=== PATIENT | male | born 1960 | race Caucasian/White ===

== ENCOUNTER 2017-08-03 13:09 | Inpatient (IN) | payer BC ==
[~2017-08-03] VITALS: Ht 172.7 cm; Wt 162.8 kg
[~2017-08-03 13:09] MED LIST: ATEN50TA PO; GEMF600T60 PO; LISI1TAB PO
[2017-08-03] MEDS ORDERED: ALBUTEROL 0.5% (NEB) 2.5 MG/0.5 ML AMP INH STA (14:29)
[2017-08-03] MEDS ORDERED: METHYLPREDNISOLONE 125 MG INJ IV STA (14:29)
[2017-08-03] MEDS ORDERED: IPRATROPIUM (NEB) 0.5 MG/2.5 ML AMP INH STA (14:29)
[2017-08-03 14:45] LABS: BASOPHILS % 0.4 % (0.0-2.0); EOSINOPHILS # 0.2 10^3/ul (0.0-0.5); EOSINOPHILS % 1.9 % (0.0-7.0); HEMATOCRIT 46.6 % (42.0-52.0); HEMOGLOBIN 15.2 g/dl (14.0-18.0); LYMPHOCYTES # 1.2 10^3/ul (0.8-2.9); LYMPHOCYTES % 11.7 % (15.0-51.0); MEAN CORPUSCULAR HGB CONC 32.6 g/dl (32.0-37.0); MEAN CORPUSCULAR VOLUME 88.8 fl (82.0-101.0); MEAN PLATELET VOLUME 10.6 fl (7.4-10.4); MONOCYTE # 0.9 10^3/ul (0.3-0.9); MONOCYTES % 8.5 % (0.0-11.0); NEUTROPHILS % 77.2 % (39.0-77.0); PLATELET COUNT 250 10^3/UL (140-415); RED BLOOD COUNT 5.25 10^6/ul (4.70-6.10); RED CELL DISTRIBUTION WIDTH 13.8 % (11.5-14.5); WHITE BLOOD COUNT 10.1 10^3/ul (4.8-10.8)
[2017-08-03 15:06] LABS: INR 0.91; PROTIME 12.3 Sec (12.2-14.2)
[2017-08-03 15:07] LABS: PARTIAL THROMBOPLASTIN TIME 24.1 Sec (25.0-35.0)
[2017-08-03 15:21] LABS: ANION GAP 13 (8-16); BLOOD UREA NITROGEN 34 mg/dl (7-20); CALCIUM 9.3 mg/dl (8.4-10.2); CARBON DIOXIDE 30 mmol/L (21-31); CHLORIDE 102 mmol/L (97-110); CREATININE 0.92 mg/dl (0.61-1.24); GLUCOSE 98 mg/dl (70-220); POTASSIUM 4.7 mmol/L (3.5-5.1); SODIUM 140 mmol/L (135-144)
--- NOTE | 2017-08-03 15:23 | RADRPT ---
PROCEDURE: Ultrasound of the left lower extremity venous system. CLINICAL INDICATION: Left leg pain and swelling, deep venous thrombosis TECHNIQUE: Brown scale with and without compression, color doppler, spectral doppler of the venous system of the left lower extremity was performed. Venous augmentation maneuvers were utilized. COMPARISON: No prior studies are available for comparison. FINDINGS: Common femoral vein: Patent. Femoral vein: Patent. Popliteal vein: Patent. Calf veins: Patent. A popliteal cyst measuring 3.0 x 1.5 x 1.8 cm. IMPRESSION: No evidence of a deep vein thrombosis within the left lower extremity. Small popliteal cyst. RPTAT: AADD .Benson Paredes MD, MD Date Time Electronically viewed and signed by .Benson Paredes MD, on 08/03/2017 15:22 .B/
[2017-08-03 15:38] LABS: B-TYPE NATRIURETIC PEPTIDE 58 PG/ML (0-125)
[2017-08-03 15:40] LABS: TROPONIN-I < 0.012 ng/ml (0.00-0.12)
[2017-08-03] MEDS ORDERED: IOHEXOL 100 ML ONE (16:07)
[2017-08-03] MEDS ORDERED: SOD CHLORIDE 0.9% 100 ML ONE (16:07)
--- NOTE | 2017-08-03 16:27 | RADRPT ---
PROCEDURE: X-ray Chest. CLINICAL INDICATION: Chest pain. TECHNIQUE: Single view chest x-ray. COMPARISON: Exam dated 05/17/2016. FINDINGS: The cardiomediastinal silhouette is within normal limits. The lungs are clear without f ocal consolidation, effusion, or pneumothorax. There are no acute osseous abnormalities. IMPRESSION: 1. No acute cardiopulmonary abnormality. RPTAT: HLBP .Jeyson Light MD, MD Date Time Electronically viewed and signed by .Jeyson Light MD, on 08/03/2017 16:27 .P/
--- NOTE | 2017-08-03 16:33 | RADRPT ---
PROCEDURE: CTA chest pulmonary angiography. CLINICAL INDICATION: Chest pain. TECHNIQUE: CT angiography of the chest was performed after the uneventful intravenous administratio n of 100 cc of Omnipaque 350. Coronal and sagittal reformations were performed. 3-D/multiplanar re formations were performed by the technologist and an independent workstation. The total exam CTDI = 79.77, 24.32 mGy and the DLP equals 912.84 mGy-cm. Evaluation is significantly limited due to contra st bolus timing. One or more of the following dose reduction techniques were used: - Automated exposure control. - Adjustment of the mA and/or kV according to patient size. - Use of iterative reconstruction technique. COMPARISON: Chest x-ray dated 08/03/2017. FINDINGS: Pulmonary angiogram: There is no large centrally obstructing embolus. A more distal embolus is not excluded. The main pulmonary artery is enlarged measuring 39 mm in diameter. Lungs, pleura, airways, and thoracic inlet: There is minor consolidation within the medial basal se gment of the right lower lobe. There is no effusion or pneumothorax. There are calcified nodules in the right lung, consistent with prior granulomatous disease. The tracheobronchial tree is patent an d normal in course and caliber. Cardiovascular system, mediastinum, and lymphatics: The heart is normal in size without pericardial thickening or effusion. There are atherosclerotic changes of the aorta, which is nonaneurysmal. The re is no axillary, hilar, or mediastinal adenopathy. Visualized upper abdomen: There are stones and the visualized gallbladder. Musculoskeletal system and soft tissues: There are no concerning osseous lesions. The soft tissues are unremarkable. IMPRESSION: 1. Significantly limited examination due to contrast bolus timing demonstrates no large centrally o bstructing embolus. A more distal embolus is not excluded. If clinical concern for pulmonary embolu s remains, nuclear medicine VQ scan versus repeat CT angiography can be performed. 2. Minor consolidation in the medial basal segment of the right lower lobe, which appears infectious /inflammatory in nature. 3. Pulmonary findings of prior granulomatous disease. 4. Enlarged main pulmonary artery suggestive of pulmonary hypertension. 5. Cholelithiasis. 6. Vascular calcifications consistent with atherosclerosis. RPTAT: HLBP .Jeyson Light MD, MD Date Time Electronically viewed and signed by .Jeyson Light MD, on 08/03/2017 16:33 .P/
[2017-08-03] MEDS ORDERED: BENA40TA41 PO (16:48)
[2017-08-03] MEDS ORDERED: ATOR20TA38 PO (16:49)
[2017-08-03] MEDS ORDERED: METO-407 PO (16:49)
[2017-08-03] MEDS ORDERED: SOD CHLORIDE 0.9% 1,000 ML IV SCH (16:58)
[2017-08-03] MEDS ORDERED: CEFTRIAXONE 1 GM/50 ML (PMX) 50 ML IVPB STA (16:59)
[2017-08-03] MEDS ORDERED: AZITHROMYCIN 500MG/NS (PMX) 250 ML IV STA (16:59)
[2017-08-03] MEDS ORDERED: ONDANSETRON 4 MG INJ IV PRN ×2 (17:00→19:00)
[2017-08-03] MEDS ORDERED: ACETAMINOPHEN 325 MG TAB PO PRN ×2 (17:00→19:00)
--- NOTE | 2017-08-03 17:05 | ERA ---
ER Documentation Chief Complaint Date/Time DATE: 08/03/17 TIME: 17:00 Chief Complaint INTERMITTENT CP X 1 WEEK, HX COPD, DENIES CARDIAC HX, LUMP BEHIND LT EAR PX HPI This is a 57-year-old male who presents to the emergency room for evaluation of chest pain and shortness of breath. This patient's chest pain is been intermittent on and off for the past week. He localizes to the left portion of his chest and describes as a sharp pain with no radiation. The pain is sometimes worse with exertion. And better with rest. The patient states she does have a history of hypertension, and COPD and came to the emergency room today for evaluation. Patient is also complaining of pain behind his left ear and states that "I feel a bump there". ROS All systems reviewed and are negative except as per history of present illness. Medications Home Meds Reported Medications Atorvastatin Calcium* (Atorvastatin Calcium*) 20 Mg Tablet, 20 MG PO QHS, #30 TAB 08/03/17 Metoprolol Tartrate* (Lopressor*) 100 Mg Tablet, 100 MG PO BID, #60 TAB 08/03/17 Benazepril Hcl* (Benazepril Hcl*) 40 Mg Tablet, 40 MG PO DAILY, #30 TAB 08/03/17 Discontinued Reported Medications Lisinopril/Hydrochlorothiazide (Lisinopril-Hctz 20-25 Tablet) 1 Udtab Tablet, 1 UDTAB PO DAILY 07/17/11 Atenolol* (Atenolol*) 50 Mg Tablet, 50 MG PO DAILY 07/17/11 Gemfibrozil* (Gemfibrozil*) 600 Mg Tablet, 600 MG PO BID 07/17/11 Allergies Allergies: Coded Allergies: No Known Allergy (Verified , 08/03/17) PMhx/Soc History of Surgery: No (carpul tunnel surgery, hernia, left forearm, right arm , right knee) Anesthesia Reaction: No Hx Respiratory Disorders: Yes (COPD, asthma) Hx Cardiac Disorders: Yes (HTN) Hx Psychiatric Problems: No Hx Miscellaneous Medical Probl: Yes (MORBID OBESITY) Hx Alcohol Use: No Hx Substance Use: Yes (Hx of marijuana many years ago) Hx Tobacco Use: No Smoking Status: Never smoker Physical Exam Vitals Vital Signs Date Time Temp Pulse Resp B/P Pulse Ox O2 Delivery O2 Flow Rate FiO2 08/03/17 15:35 67 20 107/60 96 Nasal Cannula 4.0 08/03/17 14:45 4.0 08/03/17 14:45 78 20 94 Nasal Cannula 4.0 08/03/17 14:31 Nasal Cannula 4 08/03/17 13:25 98.2 82 22 120/64 91 Physical Exam INITIAL VITAL SIGNS: Reviewed by me GENERAL: The patient obese male, no acute distress HEENT: Pupils equal, round, and reactive to light. EOMI. There is no scleral icterus. NECK: C-spine is soft and supple, there is no meningismus. There is no cervical lymphadenopathy. LUNGS: Diminished bilaterally. There are no rales, wheezes or rhonchi. HEART: Regular rate and rhythm, no murmurs, clicks, rubs or gallops. ABDOMEN: Soft, non-tender, non-distended. There are bowel sounds in all four quadrants. No rebound or guarding. EXTREMITIES: Soft tissues swelling of left lower extremityThere is no peripheral cyanosis or edema. No focal swelling or erythema. NEUROLOGICAL: The patient moves all four extremities with 5/5 strength. Cranial nerves II - XII are intact. Normal gait. Alert and oriented SKIN: Small area of induration noted behind the left ear measuring 1 cm x 1 cm, no fluctuance, no purulent discharge there is no apparent rash or petechiae. HEME/LYMPHATIC: There is no evidence of excessive bruising or lymphedema. PSYCHIATRIC: The patient does not appear anxious or depressed. Result Diagram: 08/03/17 1437 08/03/17 1437 Results 24 hrs Laboratory Tests Test 08/03/17 14:37 White Blood Count 10.110^3/ul Red Blood Count 5.2510^6/ul Hemoglobin 15.2g/dl Hematocrit 46.6% Mean Corpuscular Volume 88.8fl Mean Corpuscular Hemoglobin 29.0pg Mean Corpuscular Hemoglobin Concent 32.6g/dl Red Cell Distribution Width 13.8% Platelet Count 84750^3/UL Mean Platelet Volume 10.6fl Neutrophils % 77.2% Lymphocytes % 11.7% Monocytes % 8.5% Eosinophils % 1.9% Basophils % 0.4% Nucleated Red Blood Cells % 0.0/100WBC Neutrophils # (Manual) 7.810^3/ul Lymphocytes # 1.210^3/ul Monocytes # 0.910^3/ul Eosinophils # 0.210^3/ul Basophils # 0.010^3/ul Nucleated Red Blood Cells # 0.010^3/ul Prothrombin Time 12.3Sec Prothrombin Time Ratio 1.0 INR International Normalized Ratio 0.91 Activated Partial Thromboplast Time 24.1Sec Sodium Level 140mmol/L Potassium Level 4.7mmol/L Chloride Level 102mmol/L Carbon Dioxide Level 30mmol/L Anion Gap 13 Blood Urea Nitrogen 34mg/dl Creatinine 0.92mg/dl Glucose Level 98mg/dl Calcium Level 9.3mg/dl Troponin I < 0.012ng/ml B-Type Natriuretic Peptide 58PG/ML Current Medications Medications (Trade) Dose Ordered Sig/Rowdy Route PRN Reason Start Time Stop Time Status Last Admin Dose Admin Albuterol (Proventil 0.5% (Neb)) 10 mg ONCE STAT INH 08/03/17 14:29 08/03/17 14:31 DC 08/03/17 14:43 Ipratropium Declo (Atrovent 0.02% (Neb)) 1 mg ONCE STAT INH 08/03/17 14:29 08/03/17 14:31 DC 08/03/17 14:43 Methylprednisolone Sodium Succinate (Solu-Medrol) 125 mg ONCE STAT IV 08/03/17 14:29 08/03/17 14:31 DC 08/03/17 14:46 IV Flush 10 ml 10 ml STK-MED ONCE .ROUTE 08/03/17 16:07 08/03/17 16:08 DC 08/03/17 16:22 Sodium Chloride 100 ml @ ud STK-MED ONCE .ROUTE 08/03/17 16:07 08/03/17 16:08 DC 08/03/17 16:22 Iohexol (Omnipaque) 100 ml @ ud STK-MED ONCE .ROUTE 08/03/17 16:07 08/03/17 16:08 DC 08/03/17 16:22 Procedures/MDM EKG: Rate/Rhythm: [Normal Sinus Rhythm] QRS, ST, T-waves: [No changes consistent w/ acute ischemia] Impression: [No evidence of ischemia or arrhythmia] EKG: #2 Rate/Rhythm: [Normal Sinus Rhythm] QRS, ST, T-waves: [No changes consistent w/ acute ischemia] Impression: [No evidence of ischemia or arrhythmia] Chest X-ray 1V Interpreted by me: Soft Tissue: No acute abnormalities Bones: No acute abnormalities Mediastinum/Cardiac Silhouette/Lungs: [No acute abnormalities] :Venous Doppler ultrasound: No DVT CTA chest: 1. Significantly limited examination due to contrast bolus timing demonstrates no large centrally obstructing embolus. A more distal embolus is not excluded. If clinical concern for pulmonary embolus remains, nuclear medicine VQ scan versus repeat CT angiography can be performed. 2. Minor consolidation in the medial basal segment of the right lower lobe, which appears infectious/inflammatory in nature. 3. Pulmonary findings of prior granulomatous disease. 4. Enlarged main pulmonary artery suggestive of pulmonary hypertension. 5. Cholelithiasis. 6. Vascular calcifications consistent with at This 57-year-old male presents to the emergency room for evaluation of chest pain and mild shortness of breath. The patient does have a history of COPD. The patient did have a pulse ox of 92% when I evaluated him in the emergency room. Serial EKGs were obtained which did not show any ST elevation. Lab work was obtained including a troponin which is negative. The patient did have some left lower extremity swelling. Doppler does not show any signs of DVT. The patient underwent a CT angiogram of the chest which demonstrates a left lobe pneumonia however no sign of central pulmonary embolism. The patient will be admitted at this time for serial troponins and possible cardiology consult. Blood cultures were obtained and the patient was started on Rocephin and azithromycin. He is not septic with no fever, no leukocytosis, and his mean arterial pressures greater than 65. Departure Diagnosis: Primary Impression: Chest pain Additional Impression: Left lower lobe pneumonia Condition: Stable GREG TAPIA DO Aug 03, 2017 17:05
[2017-08-03] MEDS ORDERED: NA PHOSPHATE/BIPHOS 133 ML ENEMA PR PRN (19:00)
[2017-08-03] MEDS ORDERED: DOCUSATE SODIUM 100 MG CAP PO PRN (19:00)
[2017-08-03] MEDS ORDERED: morphine 2 MG INJ IV PRN (19:00)
[2017-08-03] MEDS ORDERED: hydrALAzine 20 MG INJ IV PRN (19:00)
[2017-08-03] MEDS ORDERED: LORAZEPAM 2 MG INJ IV PRN (19:00)
[2017-08-03] MEDS ORDERED: NITROGLYCERIN (SL) 0.4 MG TAB SL PRN (19:00)
[2017-08-03] MEDS ORDERED: MAGNESIUM HYDROXIDE 30ML CUP PO PRN (19:00)
[2017-08-03] MEDS ORDERED: ALBUTEROL/IPRATROPIUM (NEB) 3 ML AMP HHN PRN (19:00)
[2017-08-03] MEDS ORDERED: HYDROCODONE/APAP (5/325) TAB PO PRN (19:00)
[2017-08-03] MEDS ORDERED: NACL 0.9% 3 ML SYG IV SCH (19:00)
[2017-08-03 20:00] VITALS: BP 131/64; RESP 17
[2017-08-03 20:42] VITALS: PULSE 87
[2017-08-03] MEDS ORDERED: ATORVASTATIN 20 MG TAB PO SCH (21:00)
[2017-08-03] MEDS: HEPARIN 5,000 UNIT/0.5 ML VIAL SC SCH ×2 (21:00→21:49)
[2017-08-03 21:17] VITALS: Ht 172.7 cm; Wt 162.8 kg
--- NOTE | 2017-08-03 21:28 | HP ---
DATE OF ADMISSION: 08/03/2017 CHIEF COMPLAINT: Chest pain and shortness of breath times 1 week. HISTORY OF PRESENT ILLNESS: A 57-year-old male with past medical history of prior respiratory failure, uses home oxygen and BiPAP at home, essential hypertension, high cholesterol, obesity, COPD, lower extremity rash, who has been having chest pain and shortness of breath occurring constantly over the last week, not relieved with his home oxygen. He took his regular medications as well. He notes he has had some sweats as well, but no diarrhea or constipation, no upper or lower GI bleeding. No fevers or chills. No nausea, vomiting, or abdominal pain. He said it has been causing him to go to sleep early. When he came in today to the ER he was found with normal CBC and a CTA was performed that was a limited examination and did not demonstrate any large centrally obstructing embolus, although a more distal embolus such as a PE could not be excluded. He also has an enlarged main pulmonary artery suggestive of pulmonary hypertension and pulmonary findings of prior granulomatous disease and cholelithiasis, and also some minor consolidation in the medial basal segment of the right lower lobe, appears to be infectious or inflammatory in nature. The patient was last here at our hospital from May 14 to May 20, 2016. At that time, he was treated for respiratory failure and was intubated at that time. PAST MEDICAL HISTORY: As above. ALLERGIES: NO KNOWN DRUG ALLERGIES. MEDICATIONS: Home medications, atorvastatin 20 mg nightly, benazepril 40 mg daily, Lopressor 100 mg b.i.d. PAST SURGICAL HISTORY: Left knee surgery in the past. SOCIAL HISTORY: Negative for smoking, drinking, or IV drug abuse. FAMILY HISTORY: Noncontributory. PHYSICAL EXAMINATION: VITAL SIGNS: Today vital signs, T-max 98.2, pulse 67 to 82, respirations 20 to 22, blood pressure 107 to 120 systolic over 60 to 64 diastolic, sating at 91 to 96 percent on nasal cannula 4 L. GENERAL: Patient lying in bed, answering questions appropriately, no acute distress. HEENT: Pupils equal, round, react to light. Extraocular muscles intact. NECK: Supple. No thyromegaly. LUNGS: Distant breath sounds bilaterally. CARDIOVASCULAR: S1, S2 heard. No rubs or gallops. ABDOMEN: Obese, otherwise nontender, nondistended, soft. No rebound or guarding. Normal bowel sounds. MUSCULOSKELETAL: Trace pitting edema bilateral lower extremities is noted, bilaterally to the mid calves. NEUROLOGIC: No focal deficits. LABORATORY DATA: Again the CBC was normal. The basic metabolic panel is normal. Troponin is negative times 1. We mentioned the CTA results in the HPI. The lower extremity Doppler study shows no evidence of any DVT, it was actually done only of the left lower extremity and shows no evidence of any DVT there. Chest x- ray shows no acute cardiopulmonary abnormality. ASSESSMENT AND PLAN: A 37-year-old male with prior history of respiratory failure, chronic obstructive pulmonary disease, hypertension, high cholesterol, obesity, who presents with chest pain and shortness of breath for 1 week. Rule out acute coronary syndrome. Also with findings of a mild upper respiratory infection as well, cannot rule out pulmonary embolus exclusively. 1. Chest pain and shortness of breath. Admit the patient to the telemetry floor, trend troponin q.6 hours, put on aspirin, morphine, oxygen, titrate, to keep head of bed greater than 30 degrees. We will get a VQ scan as well. Check TSH, A1c lipid panel. Consider checking BNP and possibly having a repeat echocardiogram as well. 2. Essential hypertension. We will hold his beta hernan, but continue hydralazine IV p.r.n. as well. 3. High cholesterol. Check lipid panel. 4. History of chronic obstructive pulmonary disease. DuoNebs p.r.n. and oxygen supplementation. Keep the saturation between 88 and 92 percent. Will also order for BiPAP at night. 5. Obesity. Counseled on weight cessation. 6. Gastrointestinal prophylaxis. PPI. 7. Deep vein thrombosis prophylaxis. Heparin subcu. Consider PT consult as well. Dictated By: Russell Aparicio MD /syd/bjc /Document#: [id number]
[2017-08-03 23:02] LABS: CREATINE KINASE 74 IU/L (23-200)
[2017-08-03 23:26] LABS: CK-MB 1.53 ng/ml (0.0-2.4); TROPONIN-I < 0.012 ng/ml (0.00-0.12)
[2017-08-04] VITALS (10 sets, daily range): BP systolic 114–124; BP diastolic 54–69; PULSE 76–102; RESP 17–21
[2017-08-04] MEDS ORDERED: PANTOPRAZOLE (EC) 40 MG TAB PO SCH (06:00)
[2017-08-04 06:55] LABS: ABNORMAL IP MESSAGE 1; HEMATOCRIT 46.9 % (42.0-52.0); HEMOGLOBIN 14.8 g/dl (14.0-18.0); LYMPHOCYTES # 0.4 10^3/ul (0.8-2.9); LYMPHOCYTES % 4.5 % (15.0-51.0); MEAN CORPUSCULAR HEMOGLOBIN 28.7 pg (29.0-33.0); MEAN CORPUSCULAR HGB CONC 31.6 g/dl (32.0-37.0); MEAN CORPUSCULAR VOLUME 90.9 fl (82.0-101.0); MEAN PLATELET VOLUME 10.5 fl (7.4-10.4); MONOCYTE # 0.1 10^3/ul (0.3-0.9); MONOCYTES % 1.3 % (0.0-11.0); NEUTROPHILS % 93.2 % (39.0-77.0); PLATELET COUNT 216 10^3/UL (140-415); POSITIVE DIFF @See below; RED BLOOD COUNT 5.16 10^6/ul (4.70-6.10); RED CELL DISTRIBUTION WIDTH 13.8 % (11.5-14.5); WHITE BLOOD COUNT 8.7 10^3/ul (4.8-10.8)
[2017-08-04 07:16] LABS: CHOL/HDL RATIO 3.4 RATIO
[2017-08-04 07:29] LABS: TROPONIN-I 0.022 ng/ml (0.00-0.12)
[2017-08-04 07:33] LABS: CK-MB 2.67 ng/ml (0.0-2.4)
[2017-08-04 07:46] LABS: CALCIUM 9.1 mg/dl (8.4-10.2); CREATININE 0.7 mg/dl (0.61-1.24); MAGNESIUM 1.9 mg/dl (1.7-2.5); PHOSPHORUS 3.6 mg/dl (2.5-4.9); POTASSIUM 5.8 mmol/L (3.5-5.1)
[2017-08-04 07:50] LABS: THYROID STIMULATING HORMONE 0.483 MIU/L (0.465-4.680)
[2017-08-04] MEDS: HEPARIN 5,000 UNIT/0.5 ML VIAL SC SCH (08:50)
[2017-08-04] MEDS ORDERED: LEVOFLOXACIN 750MG/D5W (PMX) 150 ML IVPB SCH (09:00)
[2017-08-04] MEDS ORDERED: ASPIRIN (EC) 325 MG TAB PO SCH (09:00)
[2017-08-04] MEDS ORDERED: NA POLYST SULFON 15 GM/60 ML BTL PO ONE (10:30)
--- NOTE | 2017-08-04 12:20 | PN ---
Date/Time of Note Date/Time of Note DATE: 08/04/17 TIME: 12:15 Assessment/Plan VTE Prophylaxis VTE Prophylaxis Intervention: heparin Lines/Catheters IV [facility]ter [facility]from [facility] Urinary Cath still in place: No Assessment/Plan Chief Complaint/Hosp Course ASSESSMENT AND PLAN: 57-year-old male with prior history of respiratory failure, chronic obstructive pulmonary disease, hypertension, high cholesterol, obesity, who presents with chest pain and shortness of breath for 1 week. Also with findings of a mild upper respiratory infection as well, cannot rule out pulmonary embolus exclusively. 1. Chest pain and shortness of breath-troponins are negative 3. -Continue aspirin, morphine, oxygen,, to keep head of bed greater than 30 degrees. -We will order for repeat CTA of chest today to definitively rule out pulmonary embolism, it was inconclusive on the first scan in the ER.. -Follow-up TSH, A1c lipid panel. -Follow-up echocardiogram results 2. Essential hypertension -Stable, continue current medication 3. High cholesterol -follow-up lipid panel. 4. History of chronic obstructive pulmonary disease-refused BiPAP last night -Continue DuoNebs p.r.n. and oxygen supplementation. - Keep the saturation between 88 and 92 percent. -Continue BiPAP at night. 5. Obesity. Counseled on weight cessation. 6. Gastrointestinal prophylaxis. PPI. 7. Deep vein thrombosis prophylaxis. Heparin subcu. 8. Mild pneumonia: No fevers, continue antibiotics for now. 9. Hyperkalemia: Unclear source, asymptomatic, no rhythm changes, will order for Kayexalate 1 Consider PT consult as well. Problems: Subjective 24 Hr Interval Summary Free Text/Dictation Patient still with some mild shortness of breath, refused BiPAP last night. Not able to get VQ scan today because of his obesity. Exam/Review of Systems Vital Signs Vitals Vital Signs Date Time Temp Pulse Resp B/P Pulse Ox O2 Delivery O2 Flow Rate FiO2 08/04/17 12:03 91 08/04/17 11:23 97.5 20 116/67 93 08/04/17 10:51 Nasal Cannula 2.0 08/04/17 04:01 27 Intake and Output 08/03/17 08/03/17 08/04/17 15:00 23:00 07:00 Intake Total 200 ml Output Total 600 ml Balance -400 ml Exam GENERAL: Patient lying in bed, presently sleeping, no acute distress. HEENT: Pupils equal, round, react to light. Extraocular muscles intact. NECK: Supple. No thyromegaly. LUNGS: Distant breath sounds bilaterally. CARDIOVASCULAR: S1, S2 heard. No rubs or gallops. ABDOMEN: Obese, otherwise nontender, nondistended, soft. No rebound or guarding. Normal bowel sounds. MUSCULOSKELETAL: Trace pitting edema bilateral lower extremities is noted, bilaterally to the mid calves. NEUROLOGIC: No focal deficits. Results Result Diagram: 08/04/1761808/04/17618 Results 24 hrs Laboratory Tests Test 08/03/17 14:32 08/03/17 14:37 08/03/17 22:30 08/04/17 06:19 Free Thyroxine 0.75 White Blood Count 10.1 8.7 Red Blood Count 5.25 5.16 Hemoglobin 15.2 14.8 Hematocrit 46.6 46.9 Mean Corpuscular Volume 88.8 90.9 Mean Corpuscular Hemoglobin 29.0 28.7 L Mean Corpuscular Hemoglobin Concent 32.6 31.6 L Red Cell Distribution Width 13.8 13.8 Platelet Count 250 216 Mean Platelet Volume 10.6 H 10.5 H Neutrophils % 77.2 H 93.2 H Lymphocytes % 11.7 L 4.5 L Monocytes % 8.5 1.3 Eosinophils % 1.9 0.0 Basophils % 0.4 0.0 Nucleated Red Blood Cells % 0.0 0.0 Neutrophils # (Manual) 7.8 H 8.1 H Lymphocytes # 1.2 0.4 L Monocytes # 0.9 0.1 L Eosinophils # 0.2 0.0 Basophils # 0.0 0.0 Nucleated Red Blood Cells # 0.0 0.0 Prothrombin Time 12.3 Prothrombin Time Ratio 1.0 INR International Normalized Ratio 0.91 Activated Partial Thromboplast Time 24.1 L Sodium Level 140 142 Potassium Level 4.7 5.8 H Chloride Level 102 105 Carbon Dioxide Level 30 28 Anion Gap 13 15 Blood Urea Nitrogen 34 H 26 H Creatinine 0.92 0.70 Glucose Level 98 147 # Calcium Level 9.3 9.1 Troponin I < 0.012 < 0.012 0.022 B-Type Natriuretic Peptide 58 Creatine Kinase 74 77 Creatine Kinase Index 2.1 3.5 Creatinine Kinase MB (Mass) 1.53 2.67 H Hemoglobin A1c 5.8 Phosphorus Level 3.6 Magnesium Level 1.9 Triglycerides Level 105 Cholesterol Level 198 LDL Cholesterol, Calculated 120 HDL Cholesterol 57 Cholesterol/HDL Ratio 3.4 Thyroid Stimulating Hormone (TSH) 0.483 Medications Medications Current Medications Ondansetron HCl (Zofran Inj) 4 mg Q6H PRN IV NAUSEA AND/OR VOMITING; Start 08/03 at 19:00 Acetaminophen (Tylenol Tab) 650 mg Q6H PRN PO PAIN LEVEL 1-3 OR FEVER; Start at 19:00 Acetaminophen/ Hydrocodone Bitart ([place] (5/325)) 1 tab Q6H PRN PO MODERATE PAIN LEVEL 4-6; Start 08/03/17 at 19:00 Morphine Sulfate (morphine) 2 mg Q4H PRN IV SEVERE PAIN LEVEL 7-10; Start at 19:00 Docusate Sodium (Colace) 100 mg Q12H PRN PO CONSTIPATION; Start 08/03/17 at 19: 00 Magnesium Hydroxide (Milk Of Mag) 30 ml DAILY PRN PO CONSTIPATION; Start at 19:00 Sodium Biphosphate/ Sodium Phosphate (Fleet Enema) 133 ml DAILY PRN SD CONSTIPATION; Start 08/03/17 at 19:00 Pantoprazole (Protonix Tab) 40 mg DAILY@06 PO Last administered on 08/04/17 05: 21; Admin Dose 40 MG; Start 08/04/17 at 06:00 Heparin Sodium (Porcine) (Heparin (5000 Units/0.5 ml)) 5,000 unit Q12 SC ; Start 08/03/17 at 21:00 Lorazepam 0.5 mg 0.5 mg Q6H PRN IV ANXIETY; Start 08/03/17 at 19:00 Levofloxacin/ Dextrose (Levaquin 750 Mg/ D5W 150 ml (Pmx)) 150 ml @ 100 mls/hr DAILY IVPB Last administered on 08/04/17 08:49; Admin Dose 100 MLS/HR; Start at 09:00 Hydralazine HCl (Apresoline) 10 mg Q6H PRN IV ELEVATED BLOOD PRESSURE; Start at 19:00 Clonidine (Catapres) 0.1 mg Q6H PRN PO ELEVATED BLOOD PRESSURE; Start 08/03/17 at 19:00 Nitroglycerin (Nitroglycerin (Sl Tab) 0.4 Mg) 1 tab Q5M PRN SL ANGINA; Start at 19:00 Aspirin (Ecotrin) 325 mg DAILY PO Last administered on 08/04/17 08:49; Admin Dose 325 MG; Start 08/04/17 at 09:00 Atorvastatin Calcium 20 mg 20 mg QHS PO Last administered on 08/03/17 21:46; Admin Dose 20 MG; Start 08/03/17 at 21:00 Sodium Chloride (1/2 NS) 1,000 ml @ 75 mls/hr [id number] IV ; Start 08/04/17 at 12: 30; Stop 08/04/17 at 18:00 LEAH DONOVAN Aug 04, 2017 12:20
[2017-08-04] MEDS ORDERED: SOD CHLORIDE 0.45% 1,000 ML IV SCH (12:30)
[2017-08-04] MEDS ORDERED: SOD CHLORIDE 0.9% 100 ML ONE (12:36)
[2017-08-04] MEDS ORDERED: IOHEXOL 100 ML ONE (12:36)
--- NOTE | 2017-08-04 15:39 | RADRPT ---
PROCEDURE: CTA Chest and pulmonary angiogram. CLINICAL INDICATION: Chest pain and shortness of breath. TECHNIQUE: CT scan of the chest and CT pulmonary angiogram was performed following the uncomplicat ed administration of 100 cc of Omnipaque-300 on a multidetector high-resolution CT scanner. High-re solution thin slice coronal and sagittal imaging was obtained from the axial source images. 3-D vol umetric rendered post processing was performed as well. The images were reviewed on a PACS worksta tion. The total exam CTDI equals 77.46 mGy, and the total exam DLP equals 679.76 mGy-cm. One or more of the following post reduction techniques were used: Automated exposure control. Adjustment of the mA and/or kV according to patient's size. Use of iterative reconstruction technique. COMPARISON: 08/03/2017 FINDINGS: CT chest: The thoracic aorta is intact. There is no evidence of aneurysm or dissection. No significant mediastinal or hilar adenopathy is identified. A small focal opacity is again seen in the medial base of the right lower lobe. Small calcified nod ules are again seen in the right lung consistent with previous granulomatous disease. The pleural spaces are clear without evidence of pleural effusion or pneumothorax. Images through the upper abdomen again demonstrate gallstones within the gallbladder. Visualized po rtions of the liver and spleen are otherwise unremarkable. Evaluation of the osseous structures reveals no acute change. CT pulmonary angiogram: The main pulmonary artery remains prominent in size measuring 4 cm in diameter. The contrast bolus i s slightly better when compared to the previous study from 08/03/2017. No definite pulmonary emboli sm is identified. Fine detail is limited however given the contrast bolus timing and the patient's large body habitus. IMPRESSION: 1. Comparison is made to the previous study from 08/03/2017. 2. The contrast bolus on the current exam is slightly better when compared to previous study. No d efinite pulmonary embolism is identified. Fine detail is limited however is secondary to the contra st bolus timing and the patient's large body habitus. 3. Stable focal opacity in the medial base of the right lower lobe. 4. Stable small calcified granulomas in the right lung. 5. Stable cholelithiasis. 6. The main pulmonary artery remains prominent in size measuring 4 cm in diameter. RPTAT:AAJJ Carlos Alberto Liang, Physician Date Time Electronically viewed and signed by Carlos Alberto Liang, Physician on 08/04/2017 15:39 /
--- NOTE | 2017-08-04 16:06 | PDOCDIS ---
Discharge Instructions CONDITION Patient Condition: Stable HOME CARE INSTRUCTIONS: Special Diet: LOW FAT, LOW CHOLESTEROL ACTIVITY: Activity Restrictions: Slowly Increase Activity FOLLOW UP/APPOINTMENTS Follow-up Plan Please take your medications as prescribed, please use your oxygen at home and your CPAP at night. Please follow-up with your regular doctor in the clinic in the next 1-2 weeks. LEAH DONOVAN Aug 04, 2017 16:06
[2017-08-04] MEDS ORDERED: LEVO750T8 PO (16:07)
--- NOTE | 2017-08-04 16:12 | DS ---
Date/Time of Note Date/Time of Note DATE: 08/04/17 TIME: 16:09 Discharge Summary Admission/Discharge Info Admit Date/Time Aug 03, 2017 at 16:59 Discharge Date/Time Discharge Diagnosis 1. Chest pain and shortness of breath-ruled out for acute coronary syndrome 2. Essential hypertension -Stable, continue current medication 3. High cholesterol -follow-up lipid panel. 4. History of chronic obstructive pulmonary disease on home BiPAP and oxygen 5. Obesity. Counseled on weight cessation. 8. Mild pneumonia: Improving with antibody 9. Hyperkalemia: Improving with Kayexalate Hospital Course ASSESSMENT AND PLAN: 57-year-old male with prior history of respiratory failure, chronic obstructive pulmonary disease, hypertension, high cholesterol, obesity, who presents with chest pain and shortness of breath for 1 week. Also with findings of a mild upper respiratory infection as well, cannot rule out pulmonary embolus exclusively, as this was based on the initial CTA of the chest. Patient was admitted to telemetry floor , he ruled out for acute coronary syndrome. His repeat CTA of the chest with IV contrast did not demonstrate any pulmonary embolisms. Over the course of his hospital stay chest pain symptoms improved, shortness of breath symptoms improved, he was able to ambulate at baseline status, tolerated p.o. diet. He did refuse his BiPAP machine at night but was strongly encouraged to use his oxygen at home and his CPAP machine at night at home which he has already in his possession. He will be discharged home today in improved condition, see below for full list of discharge medications. Patient will need to call hospital in the next 1-2 days get the final results of his echocardiogram as the results are still pending by the time of this discharge summary. Home Meds Active Scripts Levofloxacin* (Levofloxacin*) 750 Mg Tablet, 750 MG PO DAILY for 7 Days, TAB Prov:LEAH DONOVAN S. 08/04/17 Reported Medications Atorvastatin Calcium* (Atorvastatin Calcium*) 20 Mg Tablet, 20 MG PO QHS, #30 TAB 08/03/17 Metoprolol Tartrate* (Lopressor*) 100 Mg Tablet, 100 MG PO BID, #60 TAB 08/03/17 Benazepril Hcl* (Benazepril Hcl*) 40 Mg Tablet, 40 MG PO DAILY, #30 TAB 08/03/17 Discontinued Reported Medications Lisinopril/Hydrochlorothiazide (Lisinopril-Hctz 20-25 Tablet) 1 Udtab Tablet, 1 UDTAB PO DAILY 07/17/11 Atenolol* (Atenolol*) 50 Mg Tablet, 50 MG PO DAILY 07/17/11 Gemfibrozil* (Gemfibrozil*) 600 Mg Tablet, 600 MG PO BID 07/17/11 Primary Care Provider Jaime Quigley Pending Labs Laboratory Tests Test 08/03/17 22:30 08/04/17 06:19 Creatine Kinase 74IU/L (23-200) 77IU/L (23-200) Creatine Kinase Index 2.1 3.5 Creatinine Kinase MB (Mass) 1.53ng/ml (0.0-2.4) 2.67ng/ml (0.0-2.4) Troponin I < 0.012ng/ml (0.00-0.12) 0.022ng/ml (0.00-0.12) White Blood Count 8.710^3/ul (4.8-10.8) Red Blood Count 5.1610^6/ul (4.70-6.10) Hemoglobin 14.8g/dl (14.0-18.0) Hematocrit 46.9% (42.0-52.0) Mean Corpuscular Volume 90.9fl (82.0-101.0) Mean Corpuscular Hemoglobin 28.7pg (29.0-33.0) Mean Corpuscular Hemoglobin Concent 31.6g/dl (32.0-37.0) Red Cell Distribution Width 13.8% (11.5-14.5) Platelet Count 71144^3/UL (140-415) Mean Platelet Volume 10.5fl (7.4-10.4) Neutrophils % 93.2% (39.0-77.0) Lymphocytes % 4.5% (15.0-51.0) Monocytes % 1.3% (0.0-11.0) Eosinophils % 0.0% (0.0-7.0) Basophils % 0.0% (0.0-2.0) Nucleated Red Blood Cells % 0.0/100WBC (0.0-0.0) Neutrophils # (Manual) 8.110^3/ul (1.7-7.5) Lymphocytes # 0.410^3/ul (0.8-2.9) Monocytes # 0.110^3/ul (0.3-0.9) Eosinophils # 0.010^3/ul (0.0-0.5) Basophils # 0.010^3/ul (0.0-0.1) Nucleated Red Blood Cells # 0.010^3/ul (0.0-0.0) Sodium Level 142mmol/L (135-144) Potassium Level 5.8mmol/L (3.5-5.1) Chloride Level 105mmol/L (97-110) Carbon Dioxide Level 28mmol/L (21-31) Anion Gap 15 (8-16) Blood Urea Nitrogen 26mg/dl (7-20) Creatinine 0.70mg/dl (0.61-1.24) Glucose Level 147mg/dl (70-220) Hemoglobin A1c 5.8% (0-5.9) Calcium Level 9.1mg/dl (8.4-10.2) Phosphorus Level 3.6mg/dl (2.5-4.9) Magnesium Level 1.9mg/dl (1.7-2.5) Triglycerides Level 105mg/dl (0-149) Cholesterol Level 198mg/dl (100-200) LDL Cholesterol, Calculated 120mg/dl HDL Cholesterol 57mg/dl (28-71) Cholesterol/HDL Ratio 3.4RATIO Thyroid Stimulating Hormone (TSH) 0.483MIU/L (0.465-4.680) LEAH DONOVAN Aug 04, 2017 16:12
--- NOTE | 2017-08-06 13:55 | RADRPT ---
Echocardiogram Report Patient Name: ANDREW KENYON Gender: Male Date: 1960 Study Date: 04-Aug-2017 Summer Analyst: JOSE Location: E Ref. Physician: LEAH DONOVAN Quality: Technically Difficult Study Procedures: Transthoracic echocardiogram examination. Indications: Chest Pain. 2D/M Mode Doppler Measurement Value Normal Range Measurement Value Normal Range AoR Diam MM 4.1 cm AV Peak Robert 1.4 m/sec ACS MM 2.4 cm AV Peak PG 7.7 mmHg LVIDd 2D 4.8 3.5 - 5.6 cm LVOT Peak Robert 1.1 m/sec LVIDs 2D 3.0 2.1 - 4.1 cm LVOT Peak PG 5.0 mmHg LVPWd 2D 1.5 0.6 - 1.1 cm MV E Peak Robert 0.7 m/sec IVSd 2D 1.6 0.6 - 1.1 cm MV A Peak Robert 0.7 m/sec EDV 2D 109.5 cm3 MV E/A 0.9 ESV 2D 28.1 cm3 MV Decel Time 148 msec LA Dimen 2D 2.8 2.3 - 4.0 cm MV Decel Lander 5 MV E/A 0.9 PV Peak Robert 1.1 m/sec PV Peak PG 5.0 mmHg Findings Left Ventricle: Normal left ventricular cavity size. Normal left ventricular systolic function. Tissue Doppler/Mitral Doppler indices are consistent with impaired relaxation (Stage I diastolic dysfunction). Moderate concentric left ventricular hypertrophy. The left ventricular ejection fraction is visually estimated at 55 %. Right Ventricle: Normal right ventricular size. Left Atrium: The left atrium is normal in size and appearance. Right Atrium: The right atrium is normal in size and appearance. Atrial Septum: The atrial septum is not well visualized. Mitral Valve: Normal appearance of the mitral valve leaflets. Trivial mitral regurgitation. Aortic Valve: Normal appearance and function of the aortic valve. Trileaflet aortic valve. No significant aortic stenosis or insufficiency. Tricuspid Valve: Normal appearance and function of the tricuspid valve with trace physiologic regurgitation. No evidence of tricuspid regurgitation. Pulmonic Valve: Normal pulmonic valve appearance and function with trivial (physiologic) regurgitation. There is trace pulmonic regurgitation. Pericardium: Normal pericardium with no significant pericardial effusion. Aorta: Sinus of Valsalva is mildly dilated. IVC: Normal inferior vena cava appearance. Pulmonary Artery: Normal pulmonary artery size. Conclusions 1.Normal left ventricular cavity size. Normal left ventricular systolic function. Tissue Doppler/Mitral Doppler indices are consistent with impaired relaxation (Stage I diastolic dysfunction). Moderate concentric left ventricular hypertrophy. The left ventricular ejection fraction is visually estimated at 55 %. 2.Normal appearance of the mitral valve leaflets. Trivial mitral regurgitation. 3.Normal appearance and function of the tricuspid valve with trace physiologic regurgitation. Electronically Signed By: Sadi Mcclelland 06-Aug-2017 13:55:33 -0700 Patient Name: ANDREW KENYON Study Date: 04-Aug-2017 [id number]
== END 2017-08-04 17:41 | disposition home or self-care (01) | DRG 313 ==
LOC: E/R 13:09 → MS4 16:59 → TEL 20:29
PROVIDERS: ADMIT Hospitalist; ATTEND Hospitalist
DX: R07.9 Chest pain, unspecified (principal); J18.9 Pneumonia, unspecified organism; Z99.81 Dependence on supplemental oxygen; Z68.43 Body mass index [BMI] 50.0-59.9, adult; I10 Essential (primary) hypertension; J44.9 Chronic obstructive pulmonary disease, unspecified; E78.00 Pure hypercholesterolemia, unspecified; E66.9 Obesity, unspecified; E87.5 Hyperkalemia
CPT/HCPCS: 36415; 71010; 71275; 80048; 80061; 82550; 82553; 83036; 83735; 83880; 84100; 84439; 84443; 84484; 85025; 85610; 85730; 87040; 93005; 93306; 93971; 94644; 96374; 96375; J0456; J0696; J1644; J1956; J2930; J7030; Q9967

== ENCOUNTER 2017-09-02 12:29 | Inpatient (IN) | END 2017-09-06 16:57 | disposition home or self-care (01) | DRG 189 | DX: J96.22 Acute and chronic respiratory failure with hypercapnia (principal); I50.33 Acute on chronic diastolic (congestive) heart failure; E66.2 Morbid (severe) obesity with alveolar hypoventilation; Z99.81 Dependence on supplemental oxygen; Z68.44 Body mass index [BMI] 60.0-69.9, adult; I11.0 Hypertensive heart disease with heart failure; E78.00 Pure hypercholesterolemia, unspecified; G47.33 Obstructive sleep apnea (adult) (pediatric); Z91.19 Patient's noncompliance with other medical treatment and regimen; J96.21 Acute and chronic respiratory failure with hypoxia ==

== ENCOUNTER 2017-10-06 12:29 | Inpatient (IN) | END 2017-10-10 14:31 | disposition home or self-care (01) | DRG 291 | DX: I11.0 Hypertensive heart disease with heart failure (principal); G93.49 Other encephalopathy; J96.21 Acute and chronic respiratory failure with hypoxia; E87.2 Acidosis; J18.9 Pneumonia, unspecified organism; J96.22 Acute and chronic respiratory failure with hypercapnia; Z68.43 Body mass index [BMI] 50.0-59.9, adult; J44.1 Chronic obstructive pulmonary disease with (acute) exacerbation; E66.2 Morbid (severe) obesity with alveolar hypoventilation; I50.33 Acute on chronic diastolic (congestive) heart failure; Z71.3 Dietary counseling and surveillance; G47.33 Obstructive sleep apnea (adult) (pediatric) ==

== ENCOUNTER 2017-11-21 14:05 | Inpatient (IN) | END 2017-11-28 18:54 | disposition home or self-care (01) | DRG 190 ==